=== PATIENT | male | born 1960 | race Caucasian/White ===

== ENCOUNTER 2017-11-22 03:43 | Emergency (ER) | payer OTHER ==
[~2017-11-22] VITALS: Ht 177.8 cm; Wt 65.8 kg
--- NOTE | 2017-11-22 03:55 | ED UPPER/LOWER EXTREMITY COMPL ---
History of Present Illness General Chief Complaint: Lower Extremity Injury Stated Complaint: KNEE INJURY YESTERDAY Source: patient Exam Limitations: no limitations Vital Signs & Intake/Output Vital Signs & Intake/Output Vital Signs Date Time Temp Pulse Resp B/P B/P Pulse O2 O2 Flow FiO2 Mean Ox Delivery Rate 11/22 0404 97.6 82 18 112/71 96 Room Air Allergies Uncoded Allergies: BEE STINGS (Severe, ANAPHYLAXIS 01/28/12) Reconcile Medications Ibuprofen 800 MG TABLET 1 TAB PO TID PRN pain Levetiracetam 500 MG TABLET 1 TAB PO BID SEIZURES (Reported) Phenytoin Sodium Extended 100 MG CAPSULE 1 CAP PO TID SEIZURES (Reported) Simvastatin (Simvastatin*) 10 MG TABLET 1 TAB PO QPM HIGH CHOLESTEROL ( Reported) Triage Nurses Notes Reviewed? yes Onset: Abrupt Duration: day(s): Timing: recent history Severity: mild Pain/Injury Location: Left: Knee. Method of Injury: direct blow Modifying Factors: Improves With: rest. Worsens With: movement. Associated Symptoms: left knee pain HPI: 56 yo gentleman presents with left knee pain. 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 "A sheep pushed the door to the pen... and it banged into my knee." This occured approximately 2pm yesterday. He notes the pain worsened over subsequent hours. He notes also prior episodes, "Where the knee cap would slip out and then pop back in." He is otherwise well. Past History Travel History Traveled to [place] past 21 day No Medical History Any Pertinent Medical History? see below for history Surgical History Surgical History: non-contributory Psychosocial History What is your primary language Surinamese Family History Hx Contributory? No Review of Systems Review of Systems Constitutional: Reports: no symptoms. EENTM: Reports: no symptoms. Respiratory: Reports: no symptoms. Cardiovascular: Reports: no symptoms. Gastrointestinal/Abdominal: Reports: no symptoms. Genitourinary: Reports: no symptoms. Musculoskeletal: Reports: no symptoms. Skin: Reports: no symptoms. Neurological/Psychological: Reports: no symptoms. Hematologic/Endocrine: Reports: no symptoms. Immunological: Reports: no symptoms. All Other Systems: Reviewed and Negative Physical Exam Physical Exam General Appearance: well developed/nourished, mild distress Head: atraumatic Cardiovascular/Respiratory: no respiratory distress Back: normal inspection Knee Left: pain elicited with stress on left medial ligaments, negative anterior /posterior drawer sign. Progress Differential Diagnosis: contusion, fracture, sprain Plan of Care: Orders Procedure Date/time Status XRY-KNEE COMPLETE LEFT 11/22 401 Active Diagnostic Imaging: Viewed by Me: Radiology Read. Discussed w/RAD: Radiology Read. Radiology Impression: PATIENT: CARLINE CASH PRESENT AGE: 56 PATIENT ACCOUNT NO: [id number] : 56 LOCATION: [facility] ORDERING PHYSICIAN: Isidro Salas MD SERVICE DATE: 11/22/17 EXAM TYPE: RAD - XRY-KNEE COMPLETE LEFT EXAMINATION: LEFT KNEE 3 VIEWS CLINICAL INFORMATION: Left knee pain. COMPARISON: None. TECHNIQUE: AP, lateral, oblique views of the left knee were obtained. FINDINGS: There are no fractures or dislocations. There is no knee joint effusion. There is no significant soft tissue swelling. IMPRESSION: Unremarkable left knee radiographs. DICTATED BY: Artemio Garay MD DATE/TIME DICTATED:11/22/17431 SECURITY SERGEANT:SOLITARIO DATE/TIME TRANSCRIBED:11/22/17431 CONFIDENTIAL, DO NOT COPY WITHOUT APPROPRIATE AUTHORIZATION. <Electronically signed in Other Vendor System> SIGNED BY: Artemio Garay MD 11/22/17443 Departure Departure Disposition: HOME OR SELF CARE Condition: Stable Clinical Impression Primary Impression: Left knee sprain Referrals: Lexy LOONEY,Cole Polanco (PCP/Family) Departure Forms: Customer Survey General Discharge Information Prescriptions: Current Visit Scripts Ibuprofen 1 TAB PO TID PRN pain #30 TAB Comments 11/22/17, 4:59AM.... pt with benign xray... discussed at length... pt to wear tom bandage x 6-8 weeks. Pt also referred to ortho.
[2017-11-22 04:04] VITALS: BP 112/71
[2017-11-22] MEDS ORDERED: PHENYTOIN SODI100 MG PO (04:21)
[2017-11-22] MEDS ORDERED: LEVETIRACETAM500 M2 PO (04:22)
[2017-11-22] MEDS ORDERED: SIMVASTATIN10 M1 PO (04:22)
--- NOTE | 2017-11-22 04:44 | RADIOLOGY REPORT ---
EXAMINATION: LEFT KNEE 3 VIEWS CLINICAL INFORMATION: Left knee pain. COMPARISON: None. TECHNIQUE: AP, lateral, oblique views of the left knee were obtained. FINDINGS: There are no fractures or dislocations. There is no knee joint effusion. There is no significant soft tissue swelling. IMPRESSION: Unremarkable left knee radiographs.
[2017-11-22] MEDS ORDERED: IBUPROFEN800 M1 PO (04:58)
== END 2017-11-22 05:06 ==
LOC: ERH 03:43
DX: S83.92XA Sprain of unspecified site of left knee, initial encounter (principal); W64.XXXA Exposure to other animate mechanical forces, initial encounter; Y92.79 Other farm location as the place of occurrence of the external cause; Y93.9 Activity, unspecified
CPT/HCPCS: 73562-LT